=== PATIENT | female | born 1960 | race African-American/Black ===

== ENCOUNTER 2023-06-21 08:16 | Inpatient (IN) | payer OTHER ==
[2023-06-21 09:11] VITALS: BMI 19.8
[2023-06-21] MEDS ORDERED: MAGNESIUM HYDROX 2400MG/30ML ORAL SUSPENSION 30 ML CUP PO PRN (09:32)
[2023-06-21] MEDS ORDERED: BISMUTH SUBSALICYLATE 524 MG/30 ML PO PRN (09:32)
[2023-06-21] MEDS ORDERED: BENZONATATE 200 MG CAPSULE PO PRN (09:32)
[2023-06-21] MEDS ORDERED: chlordiazePOXIDE HCL 25 MG CAPSULE PO PRN (09:32)
[2023-06-21] MEDS ORDERED: NALOXONE HCL 0.4 MG/ML VIAL IM PRN (09:32)
[2023-06-21] MEDS ORDERED: ONDANSETRON *ODT* 4 MG TABLET SL PRN (09:32)
[2023-06-21] MEDS ORDERED: NICOTINE 21 MG/24 HOURS TOPICAL PATCH TD PRN (09:32)
[2023-06-21] MEDS ORDERED: DICYCLOMINE HCL 10 MG CAPSULE PO PRN (09:32)
[2023-06-21] MEDS ORDERED: POLYETHYLENE GLYCOL (HEALTHYLAX) 3350 17 GM PACKET PO PRN (09:32)
[2023-06-21] MEDS ORDERED: NALOXONE HCL (KLOXXADO) 8 MG SPRAY NS PRN (09:32)
[2023-06-21] MEDS ORDERED: guaiFENesin 600 MG TABLET.ER (FP) PO PRN (09:32)
[2023-06-21] MEDS ORDERED: METHOCARBAMOL 500 MG TABLET PO PRN (09:32)
[2023-06-21] MEDS ORDERED: LOPERAMIDE HCL 2 MG CAPSULE PO PRN (09:32)
[2023-06-21] MEDS ORDERED: BENZOCAINE/MENTHOL (CHLORASEPTIC ) LOZENGE MM PRN (09:32)
[2023-06-21] MEDS ORDERED: chlordiazePOXIDE HCL 25 MG CAPSULE ONE (11:28)
[2023-06-21] MEDS ORDERED: methaDONE HCL 10 MG TABLET (FOR DETOX USE ONLY) ONE (11:30)
[2023-06-21] MEDS ORDERED: PRENATAL VITAMINS W/ FOLIC ACID TABLET (FP) PO ONE (11:31)
[2023-06-21] MEDS: PRENATAL VITAMINS W/ FOLIC ACID TABLET (FP) PO SCH (11:35)
[2023-06-21] MEDS: methaDONE HCL 10 MG TABLET (FOR DETOX USE ONLY) PO ONE (11:35)
[2023-06-21] MEDS: chlordiazePOXIDE HCL 25 MG CAPSULE PO SCH (11:36)
[2023-06-21] MEDS: THIAMINE HCL 100 MG TABLET (FP) PO SCH (22:34)
[2023-06-21] MEDS: MELATONIN 5 MG TABLETS PO SCH (22:34)
[2023-06-22] MEDS: amLODIPine BESYLATE 10 MG TABLET (FP) PO SCH (11:00)
[2023-06-22] MEDS: PANTOPRAZOLE 40 MG TABLET PO SCH (11:00)
[2023-06-22 11:30] LABS: HEMATOCRIT 43.3 % (32.4-45.2); HEMOGLOBIN 14.1 GM/dL (10.7-15.3); MCH 27.4 pg (25.7-33.7); MCHC 32.6 g/dl (32.0-36.0); MEAN CELL VOLUME 83.9 fl (80-96); PLATELET COUNT 313 10^3/uL (134-434); RBC 5.17 M/mm3 (3.60-5.2); RDW 14.9 % (11.6-15.6)
[2023-06-22 11:47] LABS: ALBUMIN 3.1 g/dl (3.4-5.0); BLOOD UREA NITROGEN 12.5 mg/dL (7-18); CALCIUM 9.1 mg/dL (8.5-10.1)
[2023-06-22 11:50] LABS: CREATININE 0.8 mg/dL (0.55-1.3)
[2023-06-22 11:52] LABS: BILIRUBIN,TOTAL 0.4 mg/dL (0.2-1); TOT PROT 7.6 g/dl (6.4-8.2)
[2023-06-22] MEDS: LACTULOSE 20 GM/30 ML UDC (FOR ORAL USE ONLY) PO SCH (15:17)
[2023-06-22] MEDS: ACETAMINOPHEN 325 MG TABLET (FP) PO PRN (17:52)
[2023-06-23] MEDS: chlordiazePOXIDE HCL 25 MG CAPSULE PO SCH (05:45)
[2023-06-23] MEDS: cloNIDine HCL 0.1 MG TABLET PO PRN (05:49)
[2023-06-23] MEDS: methaDONE HCL 10 MG TABLET (FOR DETOX USE ONLY) PO ONE (10:36)
[2023-06-23] MEDS: levETIRAcetam 500 MG TABLET (FP) PO SCH ×2 (11:26→11:37)
[2023-06-23] MEDS: IBUPROFEN 400 MG TABLET (FP) PO PRN (18:04)
[2023-06-24] MEDS ORDERED: chlordiazePOXIDE HCL 10 MG CAPSULE PO PRN
[2023-06-24] MEDS: MAG HYDROX/AL HYDROX/SIMETH 30 ML UNIT-DOSE CUP PO PRN (04:47)
[2023-06-24] MEDS: chlordiazePOXIDE HCL 10 MG CAPSULE PO SCH (05:40)
[2023-06-25] MEDS: chlordiazePOXIDE HCL 10 MG CAPSULE PO SCH (05:54)
[2023-06-25] MEDS: IBUPROFEN 600 MG TABLET (FP) PO PRN (06:10)
[2023-06-25] MEDS: methaDONE HCL 10 MG TABLET (FOR DETOX USE ONLY) PO ONE (09:38)
[2023-06-26] MEDS: chlordiazePOXIDE HCL 10 MG CAPSULE PO ONE (06:00)
[2023-06-26 06:29] VITALS: RESP 16
[2023-06-26 08:57] VITALS: BP 102/65; PULSE 78; TEMP 99.1
== END 2023-06-26 09:22 | disposition home or self-care (01) | DRG 773 ==
LOC: YASAS 08:16 → Y3N 12:14
PROVIDERS: ADMIT Allergy & Immunology; ATTEND Surgery
PROC: HZ2ZZZZ Detoxification Services for Substance Abuse Treatment (ICD-10-PCS; principal; 2023-06-21)
DX: F11.23 Opioid dependence with withdrawal (principal); F10.230 Alcohol dependence with withdrawal, uncomplicated; F14.20 Cocaine dependence, uncomplicated; F17.210 Nicotine dependence, cigarettes, uncomplicated; F31.9 Bipolar disorder, unspecified; F20.9 Schizophrenia, unspecified; G40.909 Epilepsy, unspecified, not intractable, without status epilepticus; I10 Essential (primary) hypertension; K21.9 Gastro-esophageal reflux disease without esophagitis; L03.116 Cellulitis of left lower limb; Z99.89 Dependence on other enabling machines and devices
CPT/HCPCS: 36415; 73590-TC-LT-FY; 73630-TC-LT; 80053; 80307; 82140; 82962; 85025; 85027; 85651; 86140; 86780; 87040; 87635; 87811; 93971-TC; J0875